=== PATIENT | female | born 1990 | race Caucasian/White ===

== ENCOUNTER 2017-03-30 15:59 | Emergency (ER) | payer BC ==
[~2017-03-30] VITALS: Ht 170.2 cm; Wt 117.0 kg
[~2017-03-30 15:59] MED LIST: BAYER PM CAPLE1 EACH PO; LANTUS 3 M100 UNITS1 SC; NO HOME MEDICATIONS; NO HOME MEDS PO; NOVOLOG PE100 UNITS/ SC; NYQUIL D COLD295 ML PO; PEPCID20 MG PO; Percocet 5/325,Endoc PO; PriLOSEC OTC PO; ZOFRAN4 MG PO
[2017-03-30] MEDS ORDERED: ADVIL200 MG PO (16:35)
[2017-03-30] MEDS ORDERED: NAPROSYN500 MG PO (16:48)
[2017-03-30] MEDS ORDERED: CLEOCIN300 MG PO (16:48)
[2017-03-30 17:24] VITALS: BP 125/76
== END 2017-03-30 17:25 | disposition home or self-care (01) ==
LOC: EME 15:59
DX: K04.7 Periapical abscess without sinus (principal); L03.211 Cellulitis of face; K05.10 Chronic gingivitis, plaque induced; Z88.0 Allergy status to penicillin
CPT/HCPCS: 99281; 99283

== ENCOUNTER 2017-06-23 08:34 | Emergency (ER) | payer SELFPAY ==
[~2017-06-23] VITALS: Ht 170.2 cm; Wt 113.3 kg
[~2017-06-23 08:34] MED LIST changes: +ADVIL200 MG PO; +CLEOCIN300 MG PO; +NAPROSYN500 MG PO
[2017-06-23 09:20] LABS: HEMATOCRIT 37.3 % (36.0-46.0); MCHC 32.7 G/DL (30.0-36.0); MCV 88.6 FL (83-99); PLATELET COUNT 307 K/uL (156-360); RBC DIS.WIDTH-CV 12.5 % (11.8-14.6); RED BLOOD COUNT 4.21 M/uL (3.80-5.20); WHITE BLOOD COUNT 11.6 K/uL (4.1-10.2)
[2017-06-23 09:31] LABS: CHLORIDE 107 mEq/L (99-109); POTASSIUM 3.8 mEq/L (3.7-5.4); SODIUM 140 mEq/L (136-147)
[2017-06-23 09:32] LABS: GLUCOSE 87 mg/dL (70-99)
[2017-06-23 09:34] LABS: ANION GAP 10 MEQ/L (2-14)
[2017-06-23 09:36] LABS: GFR ESTIMATE (CALCULATED) > 59 mL/min/
[2017-06-23 09:37] LABS: UREA NITROGEN (BUN) 13 mg/dL (9-23)
[2017-06-23 09:39] LABS: BILIRUBIN NEGATIVE; BLOOD NEGATIVE; COLOR YELLOW ((YELLOW)); GLUCOSE (STRIP) NEGATIVE; KETONES 5; LEUKOCYTES NEGATIVE; NITRITE NEGATIVE; PROTEIN (STRIP) NEGATIVE; SPECIFIC GRAVITY 1.027 (1.000-1.030); UROBILINOGEN 0.2 MG/DL (0.2-1.0)
[2017-06-23 09:45] LABS: ADD MIUA? NO; UCUL ADDED? NO
[2017-06-23 09:45] LABS: QUANTITATIVE HCG < 4.0 MIU/ML
[2017-06-23 11:01] VITALS: BP 131/95
[2017-06-24 13:13] LABS: CHLAMYDIA TRACHOMATIS NEGATIVE; NEISSERIA GONORRHOEAE NEGATIVE
== END 2017-06-23 11:17 | disposition home or self-care (01) ==
LOC: EME 08:34
PROVIDERS: Emergency Medicine
DX: N89.8 Other specified noninflammatory disorders of vagina (principal)
CPT/HCPCS: 80048; 81003; 84702; 85027; 87210; 87491; 87591; 99281; 99284

== ENCOUNTER 2017-12-31 10:50 | Emergency (ER) | payer OTHER ==
[~2017-12-31] VITALS: Ht 170.2 cm; Wt 118.9 kg
[2017-12-31 14:40] VITALS: BP 118/71
[2017-12-31] MEDS ORDERED: CLEOCIN300 MG PO (15:05)
[2017-12-31 16:55] LABS: ANTI-HIV (AIDS STAT TEST) NONREACTIVE
[2018-01-01 12:49] LABS: HEPATITIS B SURFACE ANTIBODY Nonreactive; HEPATITIS C ANTIBODY Nonreactive
[2018-01-01 12:50] LABS: HIV-1/2 AB/AG COMBO Nonreactive
== END 2017-12-31 15:27 | disposition home or self-care (01) ==
LOC: EME 10:50
PROVIDERS: Physician Assistant
PROC: 3E0T3BZ Introduction of Anesthetic Agent into Peripheral Nerves and Plexi, Percutaneous Approach (ICD-10-PCS; principal; 2017-12-31)
DX: S61.002A Unspecified open wound of left thumb without damage to nail, initial encounter (principal); K04.7 Periapical abscess without sinus; W26.0XXA Contact with knife, initial encounter; Y93.G3 Activity, cooking and baking; Z88.0 Allergy status to penicillin; Z33.1 Pregnant state, incidental
CPT/HCPCS: 86706; 86803; 87389; 99281; 99285; S0020